=== PATIENT | male | born 1940 | race Caucasian/White ===

== ENCOUNTER → 2017-09-13 | Outpatient (CLI) | payer MEDICARE ==
[~2017-09-13] MED LIST: ACE3 PO; LISI-357 PO; METXL50 PO; PER PO; TAMS0.4C69 PO; [UNRECOGNIZED DRUG - REMARK]
[2017-09-13 13:42] LABS: PLATELET COUNT, AUTOMATED 130 K/uL (150-450)
== END ==
LOC: LAB 13:27
PROVIDERS: ATTEND Nurse Practitioner Psychiatric/Mental Health
DX: I10 Essential (primary) hypertension (principal); E78.5 Hyperlipidemia, unspecified
CPT/HCPCS: 36415; 82040; 82247; 82310; 82374; 82435; 82465; 82565; 82947; 83718; 84075; 84132; 84155; 84295; 84450; 84460; 84478; 84520; 85025

== ENCOUNTER → 2018-01-01 | Outpatient (CLI) | payer MEDICARE | LOC: LAB 13:55 | PROVIDERS: ATTEND Internal Medicine Cardiovascular Disease | DX: I10 Essential (primary) hypertension (principal) | CPT/HCPCS: 36415; 82310; 82374; 82435; 82565; 82947; 84132; 84295; 84520 ==

== ENCOUNTER → 2018-01-23 | Outpatient (CLI) | payer MEDICARE | LOC: LAB 16:34 | PROVIDERS: ATTEND Urology | DX: R97.20 Elevated prostate specific antigen [PSA] (principal) | CPT/HCPCS: 36415; 84153 ==

== ENCOUNTER → 2018-05-16 | Outpatient (CLI) | payer MEDICARE ==
[2018-05-16 11:10] LABS: PLATELET COUNT, AUTOMATED 113 K/uL (150-450)
== END ==
LOC: LAB 10:49
PROVIDERS: ATTEND Nurse Practitioner Psychiatric/Mental Health
DX: E78.3 Hyperchylomicronemia (principal); R73.9 Hyperglycemia, unspecified; I10 Essential (primary) hypertension
CPT/HCPCS: 36415; 82040; 82247; 82310; 82374; 82435; 82465; 82565; 82947; 83036; 83718; 84075; 84132; 84153; 84155; 84295; 84443; 84450; 84460; 84478; 84520; 85025

== ENCOUNTER → 2018-05-31 | Outpatient (CLI) | payer MEDICARE | LOC: LAB 14:36 | PROVIDERS: ATTEND Urology | DX: R97.20 Elevated prostate specific antigen [PSA] (principal) | CPT/HCPCS: 36415; 84153 ==

== ENCOUNTER → 2018-06-04 | Outpatient (REF) | payer MEDICARE | LOC: ZZSENDIN 16:25 | PROVIDERS: ATTEND Urology | DX: R31.1 Benign essential microscopic hematuria (principal); R97.20 Elevated prostate specific antigen [PSA] | CPT/HCPCS: 87088 ==

== ENCOUNTER → 2018-07-13 | Outpatient (CLI) | payer MEDICARE | LOC: LAB 14:49 | PROVIDERS: ATTEND Urology | DX: R97.20 Elevated prostate specific antigen [PSA] (principal) | CPT/HCPCS: 36415; 84153 ==

== ENCOUNTER → 2019-01-26 | Outpatient (CLI) | payer MEDICARE | LOC: LAB 11:26 | PROVIDERS: ATTEND Urology | DX: R97.20 Elevated prostate specific antigen [PSA] (principal) | CPT/HCPCS: 36415; 84153 ==